=== PATIENT | female | born 1965 | race Caucasian/White ===

== ENCOUNTER 2017-03-03 09:45 | Emergency (ER) | payer BC, OTHER ==
[2017-03-03 10:21] VITALS: BP 144/91
--- NOTE | 2017-03-03 10:36 | UC ---
Respiratory Complaint HPI - HPI Summary HPI Summary: cough and congestion with sinus pressure for about three days. No fever. - History of Current Complaint Chief Complaint: UCGeneralIllness Stated Complaint: SINUS/COUGH Time Seen by Provider: 03/03/17 10:22 Hx Obtained From: Patient Hx Last Menstrual Period: 1 year ?: No Onset/Duration: Gradual Onset, Lasting Days Timing: Constant Severity Initially: Mild Severity Currently: Moderate Character: Cough: Nonproductive Aggravating Factors: Deep Breaths, Recumbent Position Alleviating Factors: Nothing Associated Signs And Symptoms: Positive: URI, Nasal Congestion, Sinus Discomfort. Negative: Fever, Pleuritic Chest Pain, Wheezing, Hemoptysis, Dizziness, Calf Pain, Calf Swelling, Edema, Hoarseness - Risk Factors Pulmonary Embolism Risk Factors: Negative - Allergies/Home Medications Allergies/Adverse Reactions: Allergies Allergy/AdvReac Type Severity Reaction Status Date / Time No Known Allergies Allergy Verified 03/11/12 14:36 Home Medications: Home Medications Menthol (Mouth-Throat) [Cough Drops] 7 mg MT DAILY PRN 03/03/17 [History Confirmed 03/03/17] [id number] [Tylenol Sinus Congestion 5-325-200 mg] 1 tab PO DAILY PRN 03/03/17 [History Confirmed 03/03/17] PMH/Surg Hx/FS Hx/Imm Hx Previously Healthy: No - sinus infection three years ago. - Surgical History Surgical History: Yes Surgery Procedure, Year, and Place: left ganglion cyst 15 yrs - Family History Known Family History: Positive: Other - no sinus related disease. - Social History Occupation: Employed Full-time Alcohol Use: Rare Substance Use Type: None Smoking Status (MU): Current Every Day Smoker Type: Cigarettes Amount Used/How Often: LESS THAN A 1 ppd Length of Time of Smoking/Using Tobacco: 20 years Have You Smoked in the Last Year: Yes Review of Systems ENT: Sinus Congestion Respiratory: Cough All Other Systems Reviewed And Are Negative: Yes Physical Exam Triage Information Reviewed: Yes Appearance: Well-Appearing, No Pain Distress, Well-Nourished Vital Signs: Initial Vital Signs Temp 98 F 03/03/17 10:16 Pulse 99 03/03/17 10:16 Resp 18 03/03/17 10:16 BP 144/91 03/03/17 10:16 Pulse Ox 100 03/03/17 10:16 Vital Signs Reviewed: Yes Eye Exam: Normal ENT Exam: Other - grazyna sinus tenderness. ENT: Positive: Nasal congestion, TMs normal. Negative: Pharynx normal, Pharyngeal erythema, Tonsillar swelling, Tonsillar exudate, Trismus, Muffled/ hoarse voice Neck exam: Normal Neck: Positive: Supple, Nontender, No Lymphadenopathy Respiratory Exam: Normal Cardiovascular Exam: Normal Abdominal Exam: Normal Musculoskeletal Exam: Normal Neurological Exam: Normal Psychological Exam: Normal Skin Exam: Normal UC Diagnostic Evaluation - Laboratory O2 Sat by Pulse Oximetry: 100 Respiratory Course/Dx - Differential Dx/Diagnosis Provider Diagnoses: uri. early sinusitis. Discharge - Discharge Plan Condition: Good Disposition: HOME Prescriptions: Amoxicillin PO (*) [Amoxicillin 500 MG CAP*] 500 mg PO TID #30 cap Patient Education Materials: Upper Respiratory Infection (ED) Referrals: Armando Lorenzo MD [Primary Care Provider] - If Needed
== END 2017-03-03 10:42 | disposition home or self-care (01) ==
LOC: UCCORT 09:45
DX: J06.9 Acute upper respiratory infection, unspecified (principal); J32.9 Chronic sinusitis, unspecified; F17.210 Nicotine dependence, cigarettes, uncomplicated
CPT/HCPCS: 99212; G0463